=== PATIENT | male | born 1955 | race Caucasian/White ===

== ENCOUNTER 2022-12-16 11:04 | Day surgery (SDC) | payer MEDICAID ==
[2022-12-12 13:15] VITALS: BMI 17.9
[2022-12-16] MEDS ORDERED: Midazolam HCl 2 mg/2 ml Vial ONE (11:49)
[2022-12-16] MEDS ORDERED: fentaNYL 50 mcg/mL 1 mL Vial ONE (11:49)
[2022-12-16] MEDS ORDERED: SUGAMMADEX SODIUM 200 MG/2 ML VIAL ONE (11:49)
[2022-12-16] MEDS ORDERED: Rocuronium Bromide 10 MG/ML (10ML VIAL) ONE (12:15)
[2022-12-16] MEDS ORDERED: Dexamethasone 20 MG/5 ML VIAL ONE (12:15)
[2022-12-16] MEDS ORDERED: Ondansetron PF 4 MG/2 ML Vial ONE (12:15)
[2022-12-16] MEDS ORDERED: Lidocaine 1% PF 5 ML VIAL ONE (12:15)
== END 2022-12-16 14:58 | disposition home or self-care (01) ==
LOC: MRI 11:04 → EDSTATUS 12:00 → MRI 14:58
PROVIDERS: ATTEND Nurse Practitioner Family
DX: R94.6 Abnormal results of thyroid function studies (principal); R16.0 Hepatomegaly, not elsewhere classified; D37.6 Neoplasm of uncertain behavior of liver, gallbladder and bile ducts
CPT/HCPCS: 70551; 74181; 93005; 93010; J1100; J2250; J2405; J3010